=== PATIENT | female | born 1980 | race Two or more races ===

== ENCOUNTER 2020-09-07 08:56 | Outpatient (REF) | payer MEDICAID, SELFPAY | END 2020-09-07 08:57 | disposition home or self-care (01) | LOC: HO.SCI 08:56 | DX: Z13.89 Encounter for screening for other disorder (principal) ==

== ENCOUNTER 2020-09-16 12:24 | Outpatient (REF) | payer MEDICAID, SELFPAY ==
--- NOTE | 2020-09-16 12:28 | CT_ITS ---
EXAMINATION: CT HEAD WITHOUT CONTRAST CLINICAL INFORMATION: Lymphangioma. Obesity COMPARISON: None TECHNIQUE: Contiguous axial imaging was performed from the skull base to vertex without intravenous administration of contrast. This CT examination was performed using dose optimization techniques as appropriate, variously including the following: *Automated exposure control *Adjustment of mA and/or kV according to patient size (this includes techniques or standardized protocols for targeted exams where dose is matched to indication/reason for exam; i.e. extremities or head) *Use of iterative reconstruction technique DLP: 699 mGy-cm FINDINGS: There is no evidence of acute intracranial hemorrhage or territorial infarction. There is prominent bilateral frontal subdural space likely old hygroma or frontal atrophy.. No abnormal mass effect or midline shift is seen. Bucio to white matter differentiation is well preserved. No extra-axial fluid collections are identified. The ventricles are normal in size. There is no abnormal attenuation within the brain parenchyma. The osseous structures and soft tissues are normal. There is a small right frontal jory hole noted from previous intervention. The mastoid air cells and visualized portions of the paranasal sinuses are well aerated. CT/CT head/brain wo con IMPRESSION: No acute intracranial process seen.
== END 2020-09-16 12:25 | disposition home or self-care (01) ==
LOC: HO.CT 12:24
PROVIDERS: Visit Provider Nurse Practitioner Family
DX: D18.1 Lymphangioma, any site (principal); E66.9 Obesity, unspecified; H54.61 Unqualified visual loss, right eye, normal vision left eye; I10 Essential (primary) hypertension; R25.9 Unspecified abnormal involuntary movements; R53.1 Weakness; Z98.890 Other specified postprocedural states
CPT/HCPCS: 70450

== ENCOUNTER 2020-09-28 13:38 | Outpatient (REF) | payer MEDICAID, SELFPAY ==
[2020-09-28 14:35] LABS: Blood Urea Nitrogen 12 mg/dL (9-16); Estimated Glomerular Filt Rate > 60
== END 2020-09-28 13:39 | disposition home or self-care (01) ==
LOC: HO.LAB 13:38
PROVIDERS: Visit Provider Psychiatry & Neurology Neurology
DX: H46.9 Unspecified optic neuritis (principal); G43.909 Migraine, unspecified, not intractable, without status migrainosus
CPT/HCPCS: 36415; 82565; 84520

== ENCOUNTER 2020-10-03 12:50 | Outpatient (REF) | payer MEDICAID, SELFPAY ==
--- NOTE | ~2020-10-03 | MR_ITS ---
EXAMINATION: MR BRAIN WITHOUT AND WITH CONTRAST CLINICAL INFORMATION: Status post surgery for subdural hematoma over right parietal region 04/26/2020. COMPARISON: CT head 09/16/2020. TECHNIQUE: Multiplanar MR imaging of the brain was performed without and with contrast. A total of 7.5 mL Gadavist was utilized for this examination. FINDINGS: There is a small jory hole within the right parietal bone near the coronal suture that is better depicted on the CT scan of the head from 09/16/2020. There is a small subdural hygroma of the right cerebral convexity, the size of which appears similar to the CT scan of the head from 09/16/2020. It measures approximately 3 mm in maximal thickness. Otherwise no abnormal extra-axial collection. Postcontrast images reveal no abnormal mass or enhancement within the intracranial compartment. No intracranial mass effect or midline shift. Lateral and third ventricles are normal. No hydrocephalus. Midline structures including the cervicomedullary junction are normal. No acute bone marrow signal changes. There is no acute territorial infarct. No pathological magnetic susceptibility artifact. Intracranial vascular flow voids are grossly maintained. There is no mastoid or middle ear effusion. No active paranasal sinus disease. Globes and orbits are symmetric. MR/MR head/brain wo/w con IMPRESSION: Stable size of a small subdural hygroma over the right cervical convexity. Otherwise unremarkable examination. No evidence of acute territorial infarct or hemorrhage. No abnormal intracranial mass or enhancement.
== END 2020-10-03 12:51 | disposition home or self-care (01) ==
LOC: HO.MRI 12:50
PROVIDERS: Visit Provider Psychiatry & Neurology Neurology
DX: H46.9 Unspecified optic neuritis (principal)
CPT/HCPCS: 70553; A9585

== ENCOUNTER 2021-02-09 07:47 | Outpatient (REF) | payer MEDICAID, SELFPAY ==
--- NOTE | ~2021-02-09 | MM_ITS ---
EXAMINATION: MM SCREENING DIGITAL BREAST TOMOSYNTHESIS, BILATERAL CLINICAL INFORMATION: Screening. Asymptomatic. No prior breast imaging. Age 40. No known family history breast cancer. The lifetime risk of breast cancer based on the Tyrer-Cuzick Model is 7%. COMPARISON: None (current study represents initial baseline exam). TECHNIQUE: Digital breast tomosynthesis is performed in both the craniocaudal and mediolateral oblique views along with computer-aided detection (CAD). Synthesized 2D images are generated from the tomosynthesis. FINDINGS: There are scattered areas of fibroglandular density (ACR BI-RADS breast composition Category b). There is no significant mass or architectural abnormality. There are a few scattered benign round calcifications. The axilla and skin contours are unremarkable. MM/MM tomosynthesis screening BI IMPRESSION: No mammographic evidence of malignancy. ASSESSMENT: BI-RADS 1: Negative RECOMMENDATION: Routine annual mammography screening. This patient's information was entered into a reminder system with a target due date for their next mammogram.
== END 2021-02-09 07:48 | disposition home or self-care (01) ==
LOC: HO.MAMMO 07:47
PROVIDERS: Visit Provider Nurse Practitioner Family
DX: Z12.31 Encounter for screening mammogram for malignant neoplasm of breast (principal)
CPT/HCPCS: 77063; 77067

== ENCOUNTER 2021-06-12 13:15 | Outpatient (REF) | payer MEDICAID, SELFPAY ==
--- NOTE | ~2021-06-12 | CT_ITS ---
EXAMINATION: CT BRAIN WITHOUT CONTRAST CT FACIAL BONES CLINICAL INFORMATION: Fall 6 days ago. COMPARISON: None TECHNIQUE: 5 mm thin axial and reformatted 2 mm thin sagittal and coronal images of brain were obtained without contrast. Subsequently axial 2 mm thin and reformatted sagittal and coronal 1 mm thin images of facial bones were obtained. DLP: 892 mGy-cm FINDINGS: Brain: There is no acute intra-axial, extra-axial bleed, masses or midline shift. There is prominent extra-axial bilateral fluid collection, right greater than left, from old right subdural hygroma. There is no acute bleed. The lateral ventricles are symmetrical in configuration without enlargement. The estrada to white matter difference is maintained normal. Bone windows reveal right frontal bone jory hole from previous intervention. No calvarial fracture seen. There is no scalp soft tissue abnormality. Bilateral paranasal sinuses and mastoid air cells are well aerated. Facial Bones: Visualized bilateral bony orbits, optic globe and intraocular contents are symmetrical and normal. There is mild mucoperiosteal thickening right maxillary sinus. Rest of the paranasal sinuses are well aerated and clear. The drainage pathways are widely patent. The bony sinus tarango, lamina papyracea and the cribriform plate are intact. The nasal bone is intact. Mandible is intact. Bilateral TM joints are symmetrical and normal. Visualized upper cervical spine, craniovertebral junction and C1-C2 alignment is normal. Soft tissues are normal. 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 There is minimal prominent left frontal subdural space/hygroma. No acute intracranial process seen. There is no maxillofacial, mandibular, orbital or nasal fracture. Mild mucoperiosteal thickening right maxillary sinus.
== END 2021-06-12 13:16 | disposition home or self-care (01) ==
LOC: HO.CT 13:15
PROVIDERS: PCP Nurse Practitioner Family; Visit Provider Emergency Medicine
DX: R56.9 Unspecified convulsions (principal); R68.84 Jaw pain; R25.2 Cramp and spasm; Z91.81 History of falling; G96.08 Other cranial cerebrospinal fluid leak; S09.90XA Unspecified injury of head, initial encounter; W18.39XA Other fall on same level, initial encounter; Y92.9 Unspecified place or not applicable; Y99.8 Other external cause status; M89.38 Hypertrophy of bone, other site
CPT/HCPCS: 70450; 70486